=== PATIENT | male | born 2000 | race Hispanic/Latino ===

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

== ENCOUNTER 2025-10-07 20:31 | Emergency (ER) | payer MEDICAID, OTHER ==
[~2025-10-07] VITALS: Ht 177.8 cm; Wt 112.9 kg
--- NOTE | 2025-10-07 20:55 | ERN ---
ED Note History of Present Illness Stated Complaint: CHEST CONGESTION, BODY ACHES, FEVER, SOB Chief Complaint: Flu Symptoms Time Seen by MD: 20:36 Dictation: PATIENT IS A 25-YEAR-OLD MALE COMING IN WITH FLU-LIKE SYMPTOMS TO INCLUDE CLEAR RUNNY NOSE SORE THROAT WITH PAINFUL SWALLOWING, BODY ACHES AND A DRY COUGH FOR TWO DAYS. NO NAUSEA NO VOMITING NO DIARRHEA. HE HAS A NO LOSS OF TASTE OR SMELL. DOES NOT HAVE A PRIMARY CARE DOCTOR, HAS BEEN TAKING NYQUIL [id number] FOR HIS SYMPTOMS. Allergies: Coded Allergies: No Known Drug Allergies (Unverified Allergy, Unknown, 10/07/25) Past Medical History Past Medical History: No Pertinent History Surgical History: None RN Note Reviewed/Agreed w/PFSH: Yes Review of System Dictation CONSTITUTIONAL: NEGATIVE EXCEPT FOR HPI FEVER CHILLS HEAD/FACE: NEGATIVE EXCEPT FOR HPI EENT: NEGATIVE EXCEPT FOR HPI CLEAR RHINITIS WITH MILD SORE THROAT RESPIRATORY: NEGATIVE EXCEPT FOR HPI DRY COUGH GASTROINTESTINAL/ABDOMINAL: NEGATIVE EXCEPT FOR HPI GENITOURINARY: NEGATIVE EXCEPT FOR HPI MUSCULOSKELETAL: NEGATIVE EXCEPT FOR HPI INTEGUMENTARY: NEGATIVE EXCEPT FOR HPI NEUROLOGICAL/PSYCH: NEGATIVE EXCEPT FOR HPI HEMATOLOGIC/LYMPHATIC: NEGATIVE EXCEPT FOR HPI ALL SYSTEMS NEGATIVE, EXCEPT NOTED ABOVE. 13 POINT REVIEW OF SYSTEMS ASSESSED AND ALL NEGATIVE EXCEPT FOR ABOVE. Initial Vital Sign VS Vital Signs Date Time Temp Pulse Resp B/P (MAP) Pulse Ox O2 Delivery O2 Flow Rate FiO2 10/07/25 20:35 98.8 88 20 161/94 97 Room Air 0 10/07/25 21:33 21 Physical Exam Dictation VITAL SIGNS REVIEWED GENERAL APPEARANCE: ALERT, ORIENTED X 3, NO ACUTE DISTRESS, WELL DEVELOPED, NOURISHED. HEAD AND FACE: NON-TRAUMATIC. EYES: PERRL, PINK CONJUNCTIVAS, EYELID NO TRAUMA, ANTERIOR CHAMBER WITH ARCUS SENILIS. EARS: PINNAS INTACT AND NO SIGNS OF TRAUMA OR ERYTHEMA EAR CANALS CLEAR AND NO DISCHARGE TM NO ERYTHEMA NOSE: CLEAR DISCHARGE, NO BLEEDING. OROPHARYNX: MOUTH NORMAL, TONGUE PINK, PHARYNX CLEAR,NO ERYTHEMA, TONSILS NO EXUDATES, NO ABSCESSES NOTED, MUCOUS MEMBRANE MOIST NECK: SUPPLE, NON-TENDER, NO THYROMEGALY, NO MASSES, NO JVD, NO BRUITS BREAST:DEFERRED CHEST:NO TENDERNESS, NO CREPITUS, NO PARADOXICAL MOVEMENT, NO RETRACTIONS LUNGS:CLEAR, WELL-VENTILATED, SYMMETRIC, NO RALES, NO WHEEZING, NO RHONCHI, NO STRIDOR, GOOD BREATH SOUNDS BILATERALLY HEART: REGULAR RATE, REGULAR RHYTHM, NO MURMUR, NO GALLOPS VASCULAR: NO PERIPHERAL EDEMA, ABDOMEN: SOFT, POSITIVE BOWEL SOUNDS, NONDISTENDED, NO GUARDING, NONTENDER, NO REBOUND, NO MASSES NO HEPATOMEGALY, NO SPLENOMEGALY, NO LANDRY'S SIGN, NO HERNIAS. RECTAL: DEFERRED GENITAL: DEFERRED NEUROLOGICAL: NORMAL SPEECH, MOTOR FUNCTION INTACT, SENSORY FUNCTION INTACT MUSCULOSKELETAL: NECK NONTENDER, FULL RANGE OF MOTION, BACK NONTENDER, FULL RANGE OF MOTION, EXTREMITIES: NONTENDER, FULL RANGE OF MOTION SKIN: COLOR PINK, DRY, NO TURGOR, NO RASH, NO LACERATIONS, NO ABRASIONS, NO CONTUSIONS. LYMPHATIC: DEFERRED Results (Laboratory/Radiology) Laboratory/Radiology Laboratory Tests Test 10/07/25 20:38 Influenza Type A Antigen Positive For Type A Influenza Type B Antigen Negative For Type B SARS-CoV-2, RNA, NAAT NEGATIVE SARS CoV-2 Group A Streptococcus Rapid negative (NEGATIVE) Labs Reviewed?: Yes ED Course ED Course Orders Procedure Category Date Status Time Influenza Type A & B, LAB 10/07/25 Complete Rapid 20:35 Rapid (Group A Strep) LAB 10/07/25 Complete 20:35 Covid Rna Naat LAB 10/07/25 Complete 20:35 Ibuprofen 800 Mg Tab PHA 10/07/25 Complete (Motrin) 21:00 Oseltamivir Phosphate PHA 10/07/25 Verified (Tamiflu) 22:30 Current Medications Medications (Trade) Dose Ordered Sig/Wood Route PRN Reason Start Time Stop Time Status Last Admin Dose Admin Ibuprofen (moTRIN) 800 mg ONCE ONCE PO 10/07/25 21:00 10/07/25 21:04 DC 10/07/25 21:43 Vital Signs Date Time Temp Pulse Resp B/P (MAP) Pulse Ox O2 Delivery O2 Flow Rate FiO2 10/07/25 21:33 98.8 88 20 161/94 97 Room Air* 0 21 10/07/25 20:35 98.8 88 20 161/94 97 Room Air 0 2230/PATIENT WILL BE DISCHARGED HOME WITH POSITIVE INFLUENZA A TAMIFLU WE WILL BE INITIATED PATIENT TOLD SEE HIS PRIMARY CARE DOCTOR FOLLOW UP WITH THE DOCTORS ON THE LIST PROVIDED HER. Medical Decision Making MDM MEDICAL DECISION-MAKING BASED ON SWABS FOR FLU COVID AND STREP. PATIENT INFLUENZA A POSITIVE TAMIFLU WAS INITIATED TAMIFLU PRESCRIPTION WAS GIVEN TO PATIENT WITH LIST OF LOCAL PRIMARY CARE DOCTORS ON STAFF. PATIENT GIVEN FEVER CONTROL INSTRUCTIONS DX & DISP Disposition: Discharge Departure Impression: Primary Impression: Influenza A Condition: Stable Scripts Oseltamivir Phosphate (Tamiflu) 75 Mg Cap 75 MG PO BID for 5 Days, #10 CAP Prov: KALLIE HERNANDEZ 10/07/25 Additional Instructions: FOLLOW-UP WITH PRIMARY CARE PROVIDER IN 1 TO 2 DAYS. TAKE MEDICATIONS DIRECTED HERE IN THE EMERGENCY ROOM. OKAY TO CONTINUE HOME MEDICATIONS UNLESS OTHERWISE DISCUSSED DURING YOUR VISIT IN THE EMERGENCY ROOM TODAY. RETURN TO YOUR NEAREST EMERGENCY ROOM IF SYMPTOMS WORSEN OR IF THERE IS NO IMPROVEMENT. CALL 911 IF YOU NEED IMMEDIATE ASSISTANCE. TAKE TYLENOL OR MOTRIN [id number] NEEDED AND IF NO CONTRAINDICATIONS ARE PRESENT. INCREASE ORAL HYDRATION. A WOUND CULTURE OR URINE CULTURE WAS ORDERED HERE IN THE EM ERGENCY ROOM DEPARTMENT PLEASE FOLLOW-UP WITH PRIMARY CARE PROVIDER AND ADVISE THEM TO GET REPEAT PORTS FROM OUR FACILITY. IF YOU HAD ANY EVAN WRAP/SPLINTS THAT WERE APPLIED HERE, PLEASE DO NOT REMOVE THEM UNTIL YOU SEE YOUR PRIMARY CARE OR SPECIALTY. TAKE TAMIFLU DIRECTED UNTIL GONE. TAKE TYLENOL OR MOTRIN [id number] NEEDED FOR FEVER PAIN. INCREASE YOUR FLUID INTAKE. SEE YOUR PRIMARY CARE DOCTOR FOR FOLLOW UP OR FOLLOW UP WITH ONE OF THE DOCTORS ON THE LIST PROVIDED YOU. Referrals: EFREN CURTIS (PCP) Time of Disposition: 22:30 I have reviewed the case, and I agree with, Diagnosis and Plan KALLIE HERNANDEZ Oct 07, 2025 20:55
[2025-10-07 21:01] LABS: RAPID GROUP A STREP negative (NEGATIVE)
[2025-10-07 21:17] LABS: SARS-CoV-2, RNA, NAAT NEGATIVE SARS CoV-2 (NEGATIVE)
[2025-10-07 21:20] LABS: INFLUENZA TYPE B Negative For Type B (NEGATIVE)
[2025-10-07 21:26] LABS: INFLUENZA TYPE A Positive For Type A (NEGATIVE)
[2025-10-07 21:33] VITALS: BP 161/94; PULSE 88; RESP 20; TEMP 98.8; O2SAT 97
[2025-10-07] MEDS: OSELTAMIVIR PHOSPHATE 75 MG CAP PO ONE (22:39)
== END 2025-10-07 22:41 | disposition home or self-care (01) ==
LOC: EDH 20:31
DX: J10.1 Influenza due to other identified influenza virus with other respiratory manifestations (principal); Z20.822 Contact with and (suspected) exposure to COVID-19
CPT/HCPCS: 87635; 87804; 87880; 99283